=== PATIENT | female | born 1970 | race African-American/Black ===

== ENCOUNTER 2024-02-16 16:02 | Emergency (ER) | payer SELFPAY ==
[~2024-02-16] VITALS: Ht 172.7 cm; Wt 95.2 kg
[~2024-02-16 16:02] MED LIST: CYCL10TA21 MT; LEVO-65 MT; NAPR-681 PO; TAMS-11 MT
[2024-02-16 16:33] VITALS: O2SAT 97
[2024-02-16] MEDS: IBUPROFEN 600MG TABLET PO ONE (18:22)
[2024-02-16] MEDS ORDERED: IBUP-2029 MT (19:24)
[2024-02-16 19:36] VITALS: BP 131/89; PULSE 92; RESP 16; TEMP 36.61404; O2SAT 99
== END 2024-02-16 19:36 | disposition home or self-care (01) ==
LOC: ER 16:02
DX: S00.83XA Contusion of other part of head, initial encounter (principal); Z79.899 Other long term (current) drug therapy; Y08.89XA Assault by other specified means, initial encounter; Y93.89 Activity, other specified; Y92.89 Other specified places as the place of occurrence of the external cause; Y99.8 Other external cause status
CPT/HCPCS: 70486; 99284